=== PATIENT | female | born 1945 | race Hispanic/Latino ===

== ENCOUNTER 2016-11-03 06:29 | Emergency (ER) | payer MEDICARE ==
[~2016-11-03] VITALS: Ht 165.1 cm; Wt 103.2 kg
[~2016-11-03 06:29] MED LIST: ACET1TAB37 PO; CARV6.252 PO; CHOL500011 PO; FLUO20CA25 PO; GLPZ5T PO; LISI1TAB9 PO; METF10002 PO; OXYB10TA6 PO; SIMV40TA5 PO; TAMO20TA4 PO; VITA400C64 PO; [UNRECOGNIZED DRUG - CODE] PO
[2016-11-03 06:35] VITALS: BP 112/69; PULSE 82; RESP 18; O2SAT 97
[2016-11-03] MEDS ORDERED: HYDROcodone-APAP 5-325 mg Tablet PO ONE (07:00)
--- NOTE | 2016-11-03 08:24 | DRSVH ---
PROCEDURE: X-RAY LEFT ANKLE, MINIMUM THREE VIEWS ([id number]) INDICATIONS: trauma TECHNIQUE: 3 to views of the ankle were acquired. COMPARISON: None. FINDINGS: Bones: No fractures or dislocations. Ankle mortise is normally aligned. No suspicious bony lesions . The talar dome demonstrates no tory abnormality. Age-appropriate degenerative changes are seen. A plantar calcaneal spur is seen. Soft tissues: Soft tissue swelling is seen at the level of the ankle. Calcification is noted of the d istal arteries. This degree of calcification is typically seen in patients with a long-standing histo ry of diabetes. Please correlate with a history of such. IMPRESSION: Soft tissue swelling is seen, without an acute fracture identified. If there is focal tenderness, or other clinical concern for a fracture not seen on these images in th is patient with a given history of trauma, please consider a dedicated CT or a short-term followup pl ain film series (in 1-2 weeks) for further evaluation. Dictated by: Abilio Ricardo M.D. on 11/03/2016 at 8:20 Approved by: Abilio Ricardo M.D. on 11/03/2016 at 8:22
--- NOTE | 2016-11-03 08:24 | ED.REPORT ---
HPI-Extremity Problem Lower Date of Service Nov 03, 2016 ED Provider: Matheus Sutherland MD Patient is a 71 year old female with a hx of HTN and DM who presents to the ED complaining of L ankle pain s/p stepping down and twisting her ankle 3 days ago while on her way to [place]. She denies hitting her head. Pt denies numbness, weakness, tingling, headache, vomiting, or any other symptoms. Nursing Notes Stated Complaint: FOOT PAIN Chief Complaint: Extremity Trauma Nursing Notes Reviewed: Yes Allergies: Coded Allergies: No Known Allergies (Verified Allergy, Unknown, 12/21/13) Scheduled Acetaminophen/Chlorpheniramine (Coricidin Hbp Cold & Flu Tab) 1 Each Tablet 1 EACH PO PRN Carvedilol (Carvedilol) 6.25 Mg Tablet 6.25 MG PO BID Cholecalciferol (Vitamin D3) (Vitamin D3) 5,000 Unit Tablet 5,000 UNIT PO DAILY Fluoxetine (Fluoxetine) 20 Mg Capsule 20 MG PO DAILY Glipizide (Glipizide Xl) 5 Mg Tab.er.24 5 MG PO DAILYWM Lisinopril / HCTZ 20-12.5 mg (Lisinopril / HCTZ 20-12.5 mg) 1 Each Tablet 1 EACH PO BID Metformin (Metformin) 1,000 Mg Tablet 1,000 MG PO BIDWM Oxybutynin Chloride ER (Ditropan XL) 10 Mg Tab.er.24 10 MG PO DAILY Simvastatin (Simvastatin) 40 Mg Tablet 40 MG PO HS Tamoxifen Citrate (Tamoxifen Citrate) 20 Mg Tablet 20 MG PO DAILY Vitamin E Mixed (Vitamin E) 400 Unit Capsule 400 UNIT PO DAILY Miscellaneous Medications Glipizide (Glipizide) 5 Mg Tablet 5 MG PO General Time Seen by MD: 06:54 Chief Complaint Ankle injury left Hx Obtained From: Patient, Spouse Arrived By: Walk-in Onset Occurred: 3 days ago Symptom Duration: Since onset Caused by: Accidental Location: : Ankle left Quality: Painful Severity: Current: Moderate Severity: Maximum: Moderate Pertinent Negative: Pt denies other symptoms Exacerbated by: Range of motion Immunizations: Unknown Past Medical History Past Medical History L breast tumor chronic renal insufficiency depression Reports: Diabetes mellitus, GERD, Hyperlipidemia, Hypertension Past Surgical History L eye cataract surgery ventral hernia repair x3 T&A Urinary TRA Smoking History Unknown if Ever Smoker Social History Other Social History: Ambulatory Status Independent Review of Systems Review of Systems Note: -tingling Musculoskeletal: Reports: Joint pain Neurologic: Denies: Focal weakness, Headache, Numbness Complete sys rev & neg: except as marked. GI: Denies: Vomiting Physical Exam Initial Vital Signs Vital Signs (First) Date Time Temp Pulse Resp B/P Pulse Ox O2 Delivery O2 Flow Rate FiO2 11/03/16 06:35 37.0 82 18 112/69 97 Room Air Initial VS: Reviewed, Vital signs normal Head / Eyes: Atraumatic, Normocephalic Neck: Full range of motion Respiratory: No respiratory distress Cardiovascular: Intact distal pulses Skin: Warm, Dry Neurologic: Alert, Oriented, Nonfocal Lower Extremity / Pelvis / MS: Inspection NL, No deformity, Neurologic intact, Vascular intact Ankle / Foot: Atraumatic, No deformity General/Constitutional: Awake, Alert Interpretation & Diagnostics X-Ray Interpretation Xray Interpretation: IMPRESSION: Soft tissue swelling is seen, without an acute fracture identified. If there is focal tenderness, or other clinical concern for a fracture not seen on these images in this patient with a given history of trauma, please consider a dedicated CT or a short-term followup plain film series (in 1-2 weeks) for further evaluation. Dictated by: Abilio Ricardo M.D. on 11/03/2016 at 8:20 Approved by: Abilio Ricardo M.D. on 11/03/2016 at 8:22 X-Ray Ordered: Ankle left Interpretation / Wet Read by: Interpret - Radiologist Procedures Splint Application - Fx Mgt Time: 09:38 Procedure Performed by: Network Support Engineer Precise Anatomic Location: Boot Post-Procedure / Complications: Cap refill normal, Post splint vascular nl, Condition improved, Tolerated procedure well, Patient stable Re-Eval/Medical Decision Re-Evaluation/Progress : Time of Eval: 09:17 Re-Evaluation/Progress Note: Discussed imaging results, plan for boot, and f/u. Discussed plan for discharge. Patient understands and agrees with plan. All questions addressed at this time. Counseled Regarding: Diagnosis, Lab results, Need for follow-up, When/why to return to ED Discharge & Departure Impression: Primary Impression: Left ankle sprain Encounter type: initial encounter Involved ligament of ankle: unspecified ligament Qualified Code: S93.402A - Sprain of unspecified ligament of left ankle, initial encounter Disposition: Home Discharge Condition All VS Reviewed: Yes Condition: Stable Patient Instructions: Ankle Sprain (ED) Additional Instructions: Thank you for entrusting us with your care. Your x-ray did not show a fracture. Please use a walking boot for immobilization and pain control. You may take Ibuprofen for additional pain relief. Ice your ankle (up to 20 minutes 2-3 times a day) and elevated it frequently. Follow up with your primary doctor within the next few days. Return to the emergency department if you experience numbness, weakness, or tingling in your leg, or increased swelling, redness, or any other new or concerning symptoms. Google Translate Claudette por confiar simms cuidado. Simms radiografa no mostr rj fractura. Por favor, utilice rj bota de marcha para la inmovilizacin y el control del dolor. Usted puede manuel Ibuprofen para el alivio adicional del dolor. Hilese el tobillo (hasta 20 minutos 2-3 veces al da) y eleve con frecuencia. Brad un seguimiento con simms mdico de cabecera en los prximos pinedo. Vuelva al departamento de emergencias si experimenta entumecimiento, debilidad o hormigueo en simms pierna, o aumento de la hinchazn, enrojecimiento o cualquier otro sntoma nuevo o relacionado. Referrals: Lennox Mejia MD (PCP) Scribe Attestation Portions of this note were transcribed by Lindsay Orosco. I, Dr. Sutherland personally performed the history, physical exam and medical decision-making; I reviewed and confirmed the accuracy of the information in the transcribed note. Signed by: Radha Álvarez, 11/03/16 copies to: Lennox Mejia MD, Kirk H MD Nov 03, 2016 08:24 LINDSAY OROSCO Nov 03, 2016 08:38
== END 2016-11-03 09:30 | disposition home or self-care (01) ==
LOC: SED 06:29
DX: S93.492A Sprain of other ligament of left ankle, initial encounter (principal); W18.31XA Fall on same level due to stepping on an object, initial encounter; Y93.89 Activity, other specified; Y92.009 Unspecified place in unspecified non-institutional (private) residence as the place of occurrence of the external cause; Y99.8 Other external cause status; I12.9 Hypertensive chronic kidney disease with stage 1 through stage 4 chronic kidney disease, or unspecified chronic kidney disease; E11.22 Type 2 diabetes mellitus with diabetic chronic kidney disease; N18.9 Chronic kidney disease, unspecified; F32.9 Major depressive disorder, single episode, unspecified; K21.9 Gastro-esophageal reflux disease without esophagitis; E78.5 Hyperlipidemia, unspecified; Z85.3 Personal history of malignant neoplasm of breast; Z98.890 Other specified postprocedural states; Z79.84 Long term (current) use of oral hypoglycemic drugs